=== PATIENT | female | born 1960 | race African-American/Black ===

== ENCOUNTER 2016-07-15 16:10 | Emergency (ER) | payer OTHER ==
[~2016-07-15] VITALS: Ht 154.9 cm; Wt 96.2 kg
[~2016-07-15 16:10] MED LIST: AUGMENTIN 875-1 EACH PO; HYDROCHLOROTH12.5 M2 PO; LISINOPRIL2.5 M1 PO; PREDNISOLO15 MG/5 M4 PO; VENTOLIN HFA18 GM INH
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
[2016-07-15] MEDS ORDERED: AMLODIPINE BESYL5 M1 PO (18:14)
[2016-07-15] MEDS ORDERED: TOPIRAMATE50 M1 PO (18:14)
[2016-07-15] MEDS ORDERED: VITAMIN D31000 UNI1 PO (18:14)
[2016-07-15] MEDS ORDERED: VITAMIN B-121000 MC3 PO (18:15)
[2016-07-15] MEDS ORDERED: MULTI-DAY VITA1 EACH PO (18:15)
[2016-07-15] MEDS ORDERED: VOLTAREN100 GM TOP (18:16)
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
[2016-07-15 19:05] VITALS: BP 140/82
== END 2016-07-15 19:30 ==
LOC: ERH 16:10
DX: R07.89 Other chest pain (principal); M54.2 Cervicalgia; V89.2XXA Person injured in unspecified motor-vehicle accident, traffic, initial encounter
CPT/HCPCS: 96372; J1885